=== PATIENT | male | born 1990 | race Two or more races ===

== ENCOUNTER 2018-01-20 19:14 | Emergency (ER) | payer SELFPAY ==
--- NOTE | 2018-01-20 19:16 | EDPHY ---
H & P Time Seen by Provider: 01/20/18 19:16 - Medical/Surgical History Hx Asthma: No Hx Chronic Respiratory Disease: No Hx Diabetes: No Hx Cardiac Disease: No Hx Renal Disease: No Hx Cirrhosis: No Hx Alcoholism: No Hx HIV/AIDS: No Hx Splenectomy or Spleen Trauma: No - Social History Smoking Status: Current some day smoker Allergies/Adverse Reactions: No Known Allergies Allergy (Unverified 05/14/16 01:23) Home Medications: Medication Instructions Recorded NK [No Known Home Meds] 05/14/16 Medical Decision Making ED Course/Re-evaluation: CHIEF COMPLAINT: Alcohol abuse HISTORY OF PRESENT ILLNESS: 27-year-old male who is somewhat intoxicated. He said he drank because of peer pressure. [facility] and was checked in but he vomited once there and had slightly high blood pressure according to them so they sent him here for evaluation. Patient has no complaints whatsoever he is somewhat intoxicated but can walk without difficulty. He knows where he is. He has no injuries. She is not suicidal or homicidal. And in fact his blood pressure is slightly on the low normal side. REVIEW OF SYSTEMS: A 10 point review of systems was performed and is negative with the exception of the elements mentioned in the history of present illness. PHYSICAL EXAM: HR, BP, O2 Sat, RR. Temp noted General Appearance: Alert, well hydrated, appropriate, and non-toxic appearing. Head: Atraumatic without scalp tenderness or obvious injury Eyes: Pupils equal, round, reactive to light and accommodation, EOMI, no trauma , no injection. Ears: Clear bilaterally, no perforation, normal landmarks Nose: Atraumatic, no rhinorrhea, clear. Throat: There is no erythema or exudates, no lesions, normal tonsils, mucus membranes moist. Neck: Supple, 2+ carotid upstroke, nontender, no lymphadenopathy. Respiratory: No retractions, no distress, no wheezes, and no accessory muscle use. Lungs are clear to auscultation bilaterally. Cardiovascular: Regular rate and rhythm, no murmurs, rubs, or gallops. Bilateral carotid, radial, dorsalis pedis, and posterior tibial pulses intact. Good capillary refill all extremities. Gastrointestinal: Abdomen is soft, nontender, non-distended, no masses, no rebound, no guarding, no peritoneal signs. Musculoskeletal: Normal active ROM of all extremities, atraumatic. Neurological: Alert, appropriate, and interactive. The patient has normal DTRs and non-focal cranial nerves, motor, sensory, and abnormal cerebellar exam intoxicated Skin: No rashes, good turgor, no nodules on palpation. Past medical history: Patient denies Past surgical history: Patient denies Family history: Noncontributory Social history: Single, employed, does not abuse tobacco or other drugs uses alcohol infrequently: DIFFERENTIAL DIAGNOSIS: The differential diagnosis for the patient's altered mental status included but was not limited to hypoglycemia, infectious process, electrolyte abnormality, head injury, neurologic process, anemia, cardiac process, and intoxicants. MEDICAL DECISION MAKING: This patient drinks some alcohol and stop drinking a couple hours ago. He was taken over the [facility]. He can ambulate on his own. [facility] sent him over here. The impetus for sending him here was they thought he had slightly high blood pressure and he vomited once. His vital signs are normal here. He does not have high blood pressure. He does not feel nauseated. I will send back to the [facility] with Librium. Departure - Departure Disposition: Home, Routine, Self-Care Clinical Impression: Alcoholic intoxication Qualifiers: Complication of substance-induced condition: uncomplicated Qualified Code(s): F10.920 - Alcohol use, unspecified with intoxication, uncomplicated Condition: Good Instructions: Abuse of Alcohol (ED) Referrals: Patient,NotPresent [Primary Care Provider] - As per Instructions
[2018-01-20] MEDS: CHLORDIAZEPOXIDE 25MG PREPK#6 BTL TAKEHOME ONE ×2 (19:32→22:39)
[2018-01-20] MEDS ORDERED: ONDANSETRON DISINTEGRATING 4 MG TAB PO ONE (19:34)
[2018-01-20] MEDS ORDERED: ONDANSETRON DISINTEGRATING 4 MG TAB ONE (19:34)
[2018-01-20] MEDS ORDERED: ONDANSETRON 4MG PREPACK#2 BTL TAKEHOME ONE (19:38)
[2018-01-20] MEDS: ONDANSETRON 4MG PREPACK#2 BTL TAKEHOME ONE ×2 (19:39→22:38)
[2018-01-20 22:50] VITALS: BP 115/78
== END 2018-01-20 22:43 | disposition home or self-care (01) ==
LOC: EDUNIT#
DX: F10.920 Alcohol use, unspecified with intoxication, uncomplicated (principal)